=== PATIENT | male | born 1980 | race Caucasian/White ===

== ENCOUNTER 2017-11-13 06:28 | Emergency (ER) | payer OTHER ==
[~2017-11-13] VITALS: Ht 172.7 cm; Wt 79.4 kg
[~2017-11-13 06:28] MED LIST: ACETAMINOPHEN-1 EAC1 PO; BACTRIM DS TAB1 EACH PO; CLARITIN10 MG PO; KEFLEX250 MG PO; KEFLEX500 MG PO; NOHOMEMEDICATIONS
[2017-11-13 08:24] VITALS: BP 109/75
== END 2017-11-13 08:24 | disposition home or self-care (01) ==
LOC: M.ERS 06:28
DX: S52.611A Displaced fracture of right ulna styloid process, initial encounter for closed fracture (principal); W17.89XA Other fall from one level to another, initial encounter; Y93.89 Activity, other specified; Y92.89 Other specified places as the place of occurrence of the external cause; Y99.0 Civilian activity done for income or pay

== ENCOUNTER 2020-06-01 10:35 | Emergency (ER) | payer OTHER ==
[~2020-06-01] VITALS: Ht 172.7 cm; Wt 75.3 kg
[2020-06-01 10:53] VITALS: BP 112/80
[2020-06-01] MEDS ORDERED: DIPHENHIST50 MG PO (11:15)
[2020-06-01] MEDS ORDERED: BACTRIM DS TAB1 EAC1 PO (11:15)
== END 2020-06-01 11:18 | disposition home or self-care (01) ==
LOC: M.ERS 10:35
DX: T63.441A Toxic effect of venom of bees, accidental (unintentional), initial encounter (principal); R22.41 Localized swelling, mass and lump, right lower limb; R22.31 Localized swelling, mass and lump, right upper limb; Y92.89 Other specified places as the place of occurrence of the external cause